=== PATIENT | female | born 1960 | race Asian ===

== ENCOUNTER 2016-11-27 13:34 | Inpatient (IN) | payer SELFPAY ==
[~2016-11-27] VITALS: Ht 154.9 cm; Wt 51.7 kg
[2016-11-27 16:01] LABS: Basophils # (auto) 0 uL; Basophils % (auto) 0.4 % (0.0-2.0); Eosinophils # (auto) 0.1 uL; Eosinophils % (auto) 1.4 % (0.0-7.0); Hematocrit 37.5 % (36.0-46.0); Hemoglobin 12.2 g/dL (12.2-16.2); Lymphocytes # (auto) 1.6 uL; Lymphocytes % (auto) 20.3 % (10.0-50.0); Mean Corpuscular Hemoglobin 30.4 pg (28.0-32.0); Mean Corpuscular Hgb Conc. 32.4 g/dL (32.0-36.0); Mean Corpuscular Volume 93.9 fL (80.0-100.0); Mean Platelet Volume 7.7 fL (7.4-10.4); Monocytes # (auto) 0.4 uL; Neutrophils # (auto) 5.7 uL; Neutrophils % (auto) 72.9 % (37.0-80.0); Platelet Count (auto) 300 10^3/uL (140-450); Red Cell Distribution Width 12.8 % (11.6-16.0); White Blood Cell 7.8 10^3/uL (4.4-10.8)
[2016-11-27 16:32] LABS: Albumin 3.8 g/dL (3.4-5.0); Bilirubin, Total 0.3 mg/dL (0.2-1.0); Calcium 8.7 mg/dL (8.5-10.1); Potassium 4.1 mmol/L (3.5-5.1); Total Protein 7.7 g/dL (6.4-8.2)
[2016-11-27 20:55] LABS: INR 1.01 (0.9-1.15); Partial Thromboplastin Time 24.4 sec (22.64-33.71); Prothrombin Time 10.4 sec (9.37-12.3)
[2016-11-27] MEDS ORDERED: ASPirin-EC 81 mg tab PO ONE (21:15)
[2016-11-27 21:33] LABS: Urine Bilirubin Negative (Negative); Urine Color Yellow (Yellow); Urine Glucose Normal (Normal); Urine Ketone Negative (Negative); Urine Nitrite Negative (Negative); Urine RBC 11 /hpf (0 - 4); Urine Squamous Epithelial Cell FEW /hpf (<5); Urine Urobilinogen Normal (Negative); Urine pH 6.5 (5.0-8.0)
[2016-11-27 21:34] LABS: Urine Blood 1+ /uL (Negative)
[2016-11-27] MEDS ORDERED: LACTULOSE 20Gm/30ML SOLN PO PRN (22:15)
[2016-11-27] MEDS ORDERED: NITROGLYCERIN 0.4 MG SL TAB SL PRN (22:15)
[2016-11-27] MEDS ORDERED: CLOPIDOGREL 300 MG TAB PO ONE (22:15)
[2016-11-27] MEDS ORDERED: cloNIDine HCL 0.1 MG TAB PO PRN (22:15)
[2016-11-27] MEDS ORDERED: MORPHINE SULF INJ 2 MG/ML SYRINGE 1ML IV PRN (22:15)
[2016-11-27] MEDS ORDERED: HCTZ25T PO (22:19)
[2016-11-27] MEDS ORDERED: ATORVASTATIN 20 MG TAB PO SCH (22:30)
[2016-11-27] MEDS: ENOXAPARIN SOD 30 MG/0.3 ML SYRINGE SC SCH (22:53)
[2016-11-27] MEDS: SODIUM CHLORIDE 0.9% 1,000 ML IV SCH (22:53)
[2016-11-27] MEDS: METOPROLOL TARTRATE 25 MG TAB PO SCH (22:56)
[2016-11-27 23:15] VITALS: BP 175/72
[2016-11-28] MEDS ORDERED: PNEUMOCOCCAL VACC POLYS 25 MCG/0.5 ML VIAL IM ONE (01:30)
[2016-11-28] MEDS ORDERED: INFLUENZA QUAD 2016-2017 0.5 ML SYRG IM ONE (01:30)
[2016-11-28 05:08] VITALS: BP 147/77
[2016-11-28 06:26] LABS: Basophils # (auto) 0 uL; Basophils % (auto) 0.7 % (0.0-2.0); Eosinophils # (auto) 0.3 uL; Eosinophils % (auto) 4.6 % (0.0-7.0); Hematocrit 34.5 % (36.0-46.0); Hemoglobin 11.2 g/dL (12.2-16.2); Lymphocytes % (auto) 33.5 % (10.0-50.0); Mean Corpuscular Hgb Conc. 32.4 g/dL (32.0-36.0); Mean Corpuscular Volume 92.7 fL (80.0-100.0); Mean Platelet Volume 7.9 fL (7.4-10.4); Monocytes # (auto) 0.5 uL; Neutrophils # (auto) 3.2 uL; Neutrophils % (auto) 53.2 % (37.0-80.0); Platelet Count (auto) 286 10^3/uL (140-450); Red Cell Distribution Width 12.9 % (11.6-16.0)
[2016-11-28 06:50] LABS: Potassium 3.6 mmol/L (3.5-5.1)
[2016-11-28 06:56] LABS: Cholesterol 168 mg/dL (<200); HDL Cholesterol 52 mg/dL (40-59); LDL Cholesterol 98 mg/dL (<100); Triglycerides 162 mg/dL (<150)
[2016-11-28 07:06] LABS: Albumin 3.4 g/dL (3.4-5.0); BUN/Creatinine Ratio 26.4; Bilirubin, Total 0.3 mg/dL (0.2-1.0); Calcium 8.3 mg/dL (8.5-10.1); Total Protein 6.6 g/dL (6.4-8.2)
[2016-11-28 08:00] VITALS: BP 128/68
[2016-11-28 09:00] VITALS: BP 128/68
[2016-11-28] MEDS ORDERED: CLOPIDOGREL BISULFATE 75 MG TAB PO SCH (10:00)
[2016-11-28] MEDS ORDERED: HCTZ 25 MG TAB PO SCH (10:00)
[2016-11-28] MEDS ORDERED: PANTOPRAZOLE SODIUM 40 MG/10 ML VIAL IV SCH (10:00)
[2016-11-28] MEDS ORDERED: ASPirin 81 mg TAB PO SCH (10:00)
[2016-11-28] MEDS: ENOXAPARIN SOD 30 MG/0.3 ML SYRINGE SC SCH (10:00)
[2016-11-28] MEDS ORDERED: ENALAPRIL MALEATE 10 MG TAB PO SCH (10:00)
[2016-11-28] MEDS: METOPROLOL TARTRATE 25 MG TAB PO SCH (10:01)
[2016-11-28] MEDS: SODIUM CHLORIDE 0.9% 1,000 ML IV SCH (10:33)
[2016-11-28] MEDS ORDERED: GIVE UN DILUTED IV ONE (11:00)
[2016-11-28] MEDS ORDERED: ADENOSINE IV ONE (11:00)
[2016-11-28 13:00] VITALS: BP 136/79
[2016-11-28] MEDS ORDERED: ASPI81CH43 PO (15:34)
[2016-11-28] MEDS ORDERED: MET25T PO (15:34)
[2016-11-28 16:12] VITALS: BP 136/79
== END 2016-11-28 18:50 | disposition home or self-care (01) | DRG 313 ==
LOC: ER 13:54 → TELE 13:55 → TELE-EAST 23:15
PROVIDERS: ADMIT Family Medicine; ATTEND Internal Medicine
DX: R07.89 Other chest pain (principal); I10 Essential (primary) hypertension; Z82.49 Family history of ischemic heart disease and other diseases of the circulatory system; Z83.3 Family history of diabetes mellitus; Z23 Encounter for immunization; Z98.51 Tubal ligation status
CPT/HCPCS: 36415; 70450; 71010; 78452; 80053; 80061; 81001; 83735; 84484; 85025; 85610; 85730; 93005; 93017; 94761; C9113; J0153

== ENCOUNTER 2017-01-17 11:46 | Emergency (ER) | payer SELFPAY ==
[~2017-01-17] VITALS: Ht 154.9 cm; Wt 49.9 kg
[~2017-01-17 11:46] MED LIST: ASPI81CH43 PO; HCTZ25T PO; MET25T PO
[2017-01-17 12:46] VITALS: BP 166/92
== END 2017-01-17 13:19 | disposition home or self-care (01) ==
LOC: ER 11:49
DX: I10 Essential (primary) hypertension (principal); F41.9 Anxiety disorder, unspecified; Z98.51 Tubal ligation status; Z76.0 Encounter for issue of repeat prescription; Z79.82 Long term (current) use of aspirin

== ENCOUNTER 2017-08-21 08:25 | Emergency (ER) | payer OTHER, MEDICAID ==
[~2017-08-21] VITALS: Ht 154.9 cm; Wt 49.9 kg
[2017-08-21 10:30] LABS: Basophils # (auto) 0.1 uL; Basophils % (auto) 0.9 % (0.0-2.0); Eosinophils # (auto) 0.4 uL; Eosinophils % (auto) 5.7 % (0.0-7.0); Hematocrit 37.7 % (36.0-46.0); Hemoglobin 12.9 g/dL (12.2-16.2); Lymphocytes # (auto) 1.7 uL; Lymphocytes % (auto) 24.8 % (10.0-50.0); Mean Corpuscular Hemoglobin 31.8 pg (28.0-32.0); Mean Corpuscular Hgb Conc. 34.1 g/dL (32.0-36.0); Mean Corpuscular Volume 93.2 fL (80.0-100.0); Mean Platelet Volume 7.7 fL (6.9-10.8); Monocytes # (auto) 0.4 uL; Monocytes % (auto) 5.8 % (0.0-12.0); Neutrophils # (auto) 4.3 uL; Neutrophils % (auto) 62.8 % (37.0-80.0); Nucleated Red Blood Cells % 0.1 %; Platelet Count (auto) 249 10^3/uL (140-450); Red Cell Distribution Width 12.5 % (11.8-14.3); White Blood Cell 6.9 10^3/uL (4.4-10.8)
[2017-08-21 10:43] LABS: Albumin 3.7 g/dL (3.4-5.0); Anion Gap 6 (5-15); Aspartate Aminotransferase 18 U/L (15-37); BUN/Creatinine Ratio 20.3; Blood Urea Nitrogen 13 mg/dL (7-18); Calcium 8.8 mg/dL (8.5-10.1); Carbon Dioxide 28 mmol/L (21-32); Chloride 105 mmol/L (98-107); GFR African American 123 mL/min; GFR Non-African American 102 mL/min; Glucose 92 mg/dL (74-106); Potassium 4.2 mmol/L (3.5-5.1); Sodium 139 mmol/L (136-145)
[2017-08-21 10:47] LABS: INR 0.95 (0.9-1.15); Partial Thromboplastin Time 23.8 sec (22.64-33.71); Prothrombin Time 10.4 sec (9.37-12.3)
[2017-08-21 10:48] LABS: Alkaline Phosphatase 49 U/L (45-117); Bilirubin, Total 0.4 mg/dL (0.2-1.0); Total Protein 7.3 g/dL (6.4-8.2)
[2017-08-21 11:44] LABS: B-Type Natriuretic Peptide 30.31 pg/mL (0-100)
[2017-08-21 11:59] LABS: Urine Bilirubin Negative (Negative); Urine Blood Negative /uL (Negative); Urine Color Yellow (Yellow); Urine Glucose Normal (Normal); Urine Ketone Negative (Negative); Urine Mucus FEW (None Seen); Urine Nitrite Negative (Negative); Urine RBC 1 /hpf (0 - 4); Urine Squamous Epithelial Cell FEW /hpf (<5); Urine Urobilinogen Normal (Negative); Urine pH 6.5 (5.0-8.0)
[2017-08-21 12:09] LABS: Temperature: 23.3 C (20.0-25.0)
[2017-08-21 12:20] VITALS: BP 137/76
== END 2017-08-21 12:44 | disposition home or self-care (01) ==
LOC: ER 08:25
DX: I10 Essential (primary) hypertension (principal); R42 Dizziness and giddiness
CPT/HCPCS: 36415; 71010; 80053; 81001; 83880; 84484; 85025; 85610; 85730; 93005; 94761